=== PATIENT | female | born 1955 | race Caucasian/White ===

== ENCOUNTER → 2017-08-07 | Outpatient (REF) | payer BC ==
[2017-08-07 19:09] LABS: C REACTIVE PROTEIN QUANTITATIV 0.33 MG/DL (0.00-0.30)
[2017-08-10 14:14] LABS: CK 1 (BB) 0 % (0); CK 2 (MB) 0 % (0-3); CK 3 (MM) 97 % (97-100); CK MACRO I PERCENT 3 % (Not Observed); CK MACRO II PERCENT 0 % (Not Observed); CK TOTAL 306 U/L (24-173)
== END ==
LOC: M LAB REF 17:51
DX: Z51.81 Encounter for therapeutic drug level monitoring (principal); Z79.1 Long term (current) use of non-steroidal anti-inflammatories (NSAID)
CPT/HCPCS: 82552

== ENCOUNTER 2017-08-09 08:41 | Emergency (ER) | payer BC ==
[2017-08-09] MEDS: METHOCARBAMOL 500 MG TAB PO (09:36)
[2017-08-09] MEDS: MORPHINE 10 MG/ML 1ML VIAL (J2270) IM (09:37)
== END 2017-08-09 10:11 | disposition home or self-care (01) ==
LOC: M ED 08:41
DX: M54.5 Low back pain (principal); M62.830 Muscle spasm of back; J30.2 Other seasonal allergic rhinitis; Z79.82 Long term (current) use of aspirin; Z79.899 Other long term (current) drug therapy
CPT/HCPCS: J2270

== ENCOUNTER → 2020-06-26 | Outpatient (CLI) | payer BC ==
[~2020-06-26] MED LIST: ASPI81TA26 PO; BIOT800T2 PO; BUPR1TAB53 PO; BUPROPION; BUTA1CAP4 PO; CITA20TA6 PO; FISH1200 PO; GLIP5TAB20 PO; HYDROCODONE-ACETAMIN; LOVA20TA2 PO; PANT20TA6; PHEN30CA2 PO; PRIL20CA9 PO; PROBCAP14 PO; PROBCAP4 PO; ROBA500T PO; TRIA37.53 PO; VICO10TA11 PO; VICO5TAB17 PO; VITA50005 PO
--- NOTE | 2020-06-26 08:17 | REP ---
INDICATION: ELEVATED PHALET COUNTS ? MYELOPROLISERATIVE COMPARISON: 09/21/2006 TECHNIQUE: Real time B-mode padilla scale ultrasound examination using curved array transducer. FINDINGS: Liver is hyperechoic suggesting fatty infiltration with focal fatty sparing adjacent to the gallbladder fossa. A 2.6 x 1.5 x 1.5 cm anechoic structure is identified suggesting cyst. The spleen, and visualized pancreas are normal in contour, size, echogenicity, and overall appearance. No focal splenic or pancreatic lesions are identified. Gallbladder is normal without gallstones, wall thickening, or pericholecystic fluid. No biliary ductal dilatation is appreciated and the common bile duct measures 5.9 mm diameter. The bilateral kidneys are normal in reniform shape without hydronephrosis or obvious abnormality. Right kidney measures 11.5 x 5.8 x 6.0 cm. Left kidney measures 10.6 x 4.6 x 6.2 cm. Visualized abdominal aorta appears grossly normal and measures 2.3 cm maximal diameter. No ascites noted. IMPRESSION: 1. Hepatosteatosis and 2.6 x 1.5 cm presumed hepatic cyst in the right lobe. <Electronically signed by Rex Lopes > 06/26/20 0813
== END ==
LOC: M RAD 06-15 07:33
PROVIDERS: ATTEND Internal Medicine Hematology & Oncology
DX: K76.0 Fatty (change of) liver, not elsewhere classified (principal); K76.89 Other specified diseases of liver

== ENCOUNTER → 2020-11-29 | Outpatient (REF) | payer BC ==
[~2020-11-29] MED LIST changes: +COVI100V IM; +ERGO500029 PO
== END ==
LOC: M WUC 19:13
PROVIDERS: ATTEND Physician Assistant
DX: Z20.828 Contact with and (suspected) exposure to other viral communicable diseases (principal)

== ENCOUNTER → 2020-12-07 | Outpatient (REF) | payer BC | LOC: M LAB REF 11:16 | PROVIDERS: ATTEND Physician Assistant | DX: J06.9 Acute upper respiratory infection, unspecified (principal); R43.0 Anosmia; Z20.828 Contact with and (suspected) exposure to other viral communicable diseases ==

== ENCOUNTER → 2021-05-25 | Outpatient (CLI) | payer BC ==
[~2021-05-25] MED LIST changes: +OMEG10002 PO; -PHEN30CA2 PO; +PHEN30CA21 PO
== END ==
LOC: M WUC 14:17
PROVIDERS: ATTEND Internal Medicine
DX: M19.012 Primary osteoarthritis, left shoulder (principal)

== ENCOUNTER → 2022-07-06 | Outpatient (REF) | payer MEDICARE ==
[~2022-07-06] MED LIST changes: -TRIA37.53 PO; +TRIA37.577 PO
== END ==
LOC: M LAB REF 16:13
PROVIDERS: ATTEND Internal Medicine
DX: E03.9 Hypothyroidism, unspecified (principal)

== ENCOUNTER → 2023-09-14 | Outpatient (REF) | payer MEDICARE ==
[2023-09-15 21:06] LABS: CK 1 (BB) 0 % (0); CK 2 (MB) 0 % (0-3); CK 3 (MM) 97 % (97-100); CK MACRO I PERCENT 3 % (Not Observed); CK MACRO II PERCENT 0 % (Not Observed); CK TOTAL 295 U/L (32-182)
== END ==
LOC: M LAB REF 12:07
PROVIDERS: ATTEND Internal Medicine
DX: M54.42 Lumbago with sciatica, left side (principal); R53.83 Other fatigue; R74.8 Abnormal levels of other serum enzymes

== ENCOUNTER → 2023-12-22 | Outpatient (CLI) | payer MEDICARE | LOC: M WUC 14:25 | PROVIDERS: ATTEND Internal Medicine | DX: M54.32 Sciatica, left side (principal) ==

== ENCOUNTER → 2024-02-21 | Outpatient (CLI) | payer MEDICARE | LOC: M PLAIMG 09:09 | PROVIDERS: ATTEND Internal Medicine | DX: N20.0 Calculus of kidney (principal) ==

== ENCOUNTER → 2024-04-11 | Outpatient (CLI) | payer MEDICARE ==
[2024-04-11 18:32] LABS: HEMATOCRIT 39.8 % (36.0-47.0); HEMOGLOBIN 13.2 g/dl (12.0-15.5); MEAN CORPUSCULAR HEMOGLOBIN 30.3 pg (27.0-33.0); MEAN CORPUSCULAR HGB CONC 33.2 g/dl (32.0-36.5); MEAN CORPUSCULAR VOLUME 91.5 fl (80.0-96.0); PLATELET COUNT, AUTOMATED 443 10^3/uL (150-450); RED BLOOD COUNT 4.35 10^6/uL (4.00-5.40); WHITE BLOOD COUNT 10.5 10^3/uL (4.0-10.0)
[2024-04-11 18:56] LABS: BLOOD UREA NITROGEN 21 MG/DL (9-23); CALCIUM LEVEL 9.2 MG/DL (8.3-10.6); CARBON DIOXIDE LEVEL 29 MMOL/L (20-31); CHLORIDE LEVEL 98 MMOL/L (98-107); CREATININE FOR GFR 0.86 MG/DL (0.55-1.30); GLOMERULAR FILTRATION RATE > 60.0 (>45); GLUCOSE, FASTING 210 MG/DL (74-106); SODIUM LEVEL 138 MMOL/L (136-145)
== END ==
LOC: M WUC 14:25
PROVIDERS: ATTEND Physician Assistant
DX: Z01.818 Encounter for other preprocedural examination (principal)

== ENCOUNTER 2024-04-25 07:58 | Day surgery (SDC) | payer MEDICARE ==
[~2024-04-25] VITALS: Ht 170.2 cm; Wt 74.5 kg
[~2024-04-25 07:58] MED LIST changes: +ACET650T61 PO; +ALBU8.5H INH; +D-50CAP PO; +DULO1CAP6 PO; +LIDOCAINE 2% 100MG/5ML SDV (FOR ANES.) As Ordered ONE; +LORA-1041 PO; +MELO7.5T35 PO; +MIDAZOLAM INJ 2MG/2ML VIAL As Ordered ONE; -PANT20TA6; +PANT20TA6 PO; +PRAV40TA2 PO; +propofoL 200 MG/20 ML VIAL As Ordered ONE
[2024-04-25] MEDS ORDERED: LR 1,000 ML IV SCH (08:40)
[2024-04-25] MEDS: ceFAZolin SOD 2 GM in IV 1 EA IV ONE (10:10)
[2024-04-25] MEDS ORDERED: FLOM0.4C39 PO (10:10)
[2024-04-25] MEDS ORDERED: ACETAMINOPHEN 1000MG/100ML IV BAG As Ordered ONE (10:24)
[2024-04-25] MEDS ORDERED: KETAMINE HCL 200MG/20ML VIAL As Ordered ONE (10:30)
[2024-04-25] MEDS ORDERED: dexmedeTOMIDine (4MCG/ML)200MCG/50ML BTL (PRECEDEX) As Ordered ONE (10:36)
[2024-04-25] MEDS ORDERED: ONDANSETRON 4MG 2ML VIAL As Ordered ONE (10:41)
[2024-04-25] MEDS ORDERED: fentaNYL 100 MCG/2 ML INJECTION IV PRN (11:15)
[2024-04-25] MEDS ORDERED: PERCOCET 5MG/325MG TAB PO PRN (11:30)
[2024-04-25] MEDS: ONDANSETRON 4MG 2ML VIAL IV PRN (12:33)
[2024-04-25] MEDS: oxyCODONE 5MG TAB PO PRN (12:55)
[2024-04-25 13:40] VITALS: BP 148/76; TEMP 97.5; O2SAT 96
== END 2024-04-25 13:45 | disposition home or self-care (01) ==
LOC: M SDC 07:58
PROVIDERS: ATTEND Urology
DX: N20.0 Calculus of kidney (principal); Z79.899 Other long term (current) drug therapy; Z87.891 Personal history of nicotine dependence
CPT/HCPCS: 50590; 74018; J0131; J0690; J2250; J2405

== ENCOUNTER → 2024-06-12 | Outpatient (CLI) | payer MEDICARE ==
[~2024-06-12] MED LIST changes: +FLOM0.4C39 PO; +GLIP-318 PO; -GLIP5TAB20 PO; -LIDOCAINE 2% 100MG/5ML SDV (FOR ANES.) As Ordered ONE; -MIDAZOLAM INJ 2MG/2ML VIAL As Ordered ONE; -propofoL 200 MG/20 ML VIAL As Ordered ONE
== END ==
LOC: M WUC 14:17
PROVIDERS: ATTEND Physician Assistant
DX: N20.0 Calculus of kidney (principal); K56.41 Fecal impaction

== ENCOUNTER → 2024-07-12 | Outpatient (REF) | payer MEDICARE ==
[~2024-07-12] MED LIST changes: +BUPR150T15 PO; -BUPR1TAB53 PO; -FLOM0.4C39 PO; +TAMS-18 PO
== END ==
LOC: M SMT 16:54
PROVIDERS: ATTEND Physician Assistant
DX: Z48.816 Encounter for surgical aftercare following surgery on the genitourinary system (principal)